=== PATIENT | female | born 1960 | race Caucasian/White ===

== ENCOUNTER 2022-06-08 01:09 | Emergency (ER) | payer OTHER ==
[~2022-06-08] VITALS: Ht 149.9 cm; Wt 59.9 kg
[2022-06-08 01:18] VITALS: BP 126/87
[2022-06-08] MEDS ORDERED: ACETAMINOPHEN EXTRA STRENGTH 500 MG TAB ONE (01:28)
[2022-06-08] MEDS ORDERED: ACETAMINOPHEN 325 MG TAB PO ONE (01:30)
--- NOTE | 2022-06-08 01:33 | NUR ---
pt to lobby
--- NOTE | 2022-06-08 01:56 | NUR ---
pt to bed 12
--- NOTE | 2022-06-08 02:37 | NUR ---
Dr. Palafox examining patient.
[2022-06-08] MEDS ORDERED: KETOROLAC 15 MG/ML VIAL IVP ONE (02:45)
[2022-06-08] MEDS ORDERED: NACL 0.9% 2,000 ML IV ONE (02:45)
--- NOTE | 2022-06-08 02:48 | NUR ---
X-Ray at bedside.
[2022-06-08 03:11] LABS: HEMATOCRIT 29.2 % (36-48); HEMOGLOBIN 9.8 g/dL (12.0-16.0); MEAN CORPUSCULAR HEMOGLOBIN 29 pg (27-31); MEAN CORPUSCULAR HGB CONC 33 g/dL (33-37); MEAN CORPUSCULAR VOLUME 86.3 fL (80-94); PLATELET COUNT (AUTO) 355 K/uL (140-450); RED BLOOD CELL COUNT(AUTO) 3.39 MIL/uL (4.20-5.40); RED CELL DISTRIBUTION WIDTH 14.4 % (11.6-13.7); WHITE BLOOD COUNT (AUTO) 19.1 K/uL (4.8-10.8)
[2022-06-08 03:44] LABS: ALBUMIN 2.6 g/dL (3.4-5.0); ANION GAP 11.1 (8-16); CARBON DIOXIDE 24.6 mmol/L (21-32); CREATININE 0.8 mg/dL (0.6-1.3); POTASSIUM 3.7 mmol/L (3.5-5.1); TOTAL BILIRUBIN 0.4 mg/dL (0.0-1.0)
[2022-06-08 04:09] LABS: LYMPHOCYTES % (MANUAL) 7 % (20-46); MONOCYTES % (MANUAL) 4 % (5-12)
--- NOTE | 2022-06-08 04:16 | NUR ---
Urine collected and sent to lab.
[2022-06-08 05:18] LABS: APPEARANCE,URINE CLEAR (CLEAR); BILIRUBIN,URINE NEGATIVE (NEGATIVE); BLOOD, URINE TRACE-I (NEGATIVE); COLOR,URINE YELLOW (YELLOW); LEUKOCYTE ESTERASE ,URINE TRACE (NEGATIVE); NITRITE, URINE NEGATIVE (NEGATIVE); UGLUCOSE NEGATIVE (NEGATIVE)
[2022-06-08 05:44] LABS: RBC,URINE 0-5 /HPF (0-5); WBC,URINE 0-5 /HPF (0-5)
[2022-06-08] MEDS ORDERED: NAPR-54 PO (05:53)
[2022-06-08] MEDS ORDERED: ACET-8905 PO (05:53)
--- NOTE | 2022-06-08 06:11 | NUR ---
Patient discharged with v/s stable. Written and verbal after care instructions given and explained. Patient alert, oriented and verbalized understanding of instructions. All questions addressed prior to discharge. ID band removed. Patient advised to follow up with PMD. Rx of Naproxen and Roebling sent to preferred pharmacy. Patient educated on indication of medication including possible reaction and side effects. Opportunity to ask questions provided and answered.
[2022-06-08 06:18] VITALS: BP 115/62
== END 2022-06-08 06:11 | disposition home or self-care (01) ==
LOC: MED 01:09
DX: M25.532 Pain in left wrist (principal); R50.9 Fever, unspecified; E87.1 Hypo-osmolality and hyponatremia; D72.829 Elevated white blood cell count, unspecified; I10 Essential (primary) hypertension; Z79.899 Other long term (current) drug therapy
CPT/HCPCS: 36415; 71045; 73110; 80053; 81001; 83605; 85025; 85651; 86140; 87040; 96361; 96374; 99285; J1885; Q0092; J7030

== ENCOUNTER 2022-09-28 09:21 | Inpatient (IN) | payer OTHER ==
[~2022-09-28] VITALS: Ht 149.9 cm; Wt 50.1 kg
[2022-09-28] VITALS (8 sets, daily range): BP systolic 83–102; BP diastolic 53–70; PULSE 87–150; RESP 10–32; TEMP 97.8–99; O2SAT 95–99
[~2022-09-28 09:21] MED LIST: ACET-8905 PO; NAPR-54 PO
[2022-09-28] MEDS ORDERED: FAMOTIDINE 20 MG/2 ML VIAL IVP ONE (09:35)
[2022-09-28] MEDS ORDERED: ONDANSETRON 4 MG/2 ML VIAL IVP ONE (09:35)
[2022-09-28] MEDS ORDERED: NACL 0.9% 1,000 ML IV ONE ×4 (09:35→21:50)
[2022-09-28 10:12] LABS: BASOPHILS # (AUTO) 0.1 K/uL (0.00-0.22); BASOPHILS % (AUTO) 0.4 % (0.0-2.0); EOSINOPHILS # (AUTO) 1.8 K/uL (0-0.4); EOSINOPHILS % (AUTO) 8.7 % (0.0-4.0); HEMATOCRIT 26.9 % (36-48); HEMOGLOBIN 8.6 g/dL (12.0-16.0); LYMPHOCYTES # (AUTO) 1.3 K/uL (2.5-16.5); LYMPHOCYTES % (AUTO) 6.3 % (20.5-51.1); MEAN CORPUSCULAR HEMOGLOBIN 26 pg (27-31); MEAN CORPUSCULAR HGB CONC 32 g/dL (33-37); MEAN CORPUSCULAR VOLUME 80.9 fL (80-94); NEUTROPHILS # (AUTO) 16.1 K/uL (1.8-7.7); NEUTROPHILS % (AUTO) 79.6 % (42.2-75.2); PLATELET COUNT (AUTO) 415 K/uL (140-450); RED BLOOD CELL COUNT(AUTO) 3.33 MIL/uL (4.20-5.40); WHITE BLOOD COUNT (AUTO) 20.2 K/uL (4.8-10.8)
[2022-09-28 10:28] LABS: FLU A ANTIGEN negative (NEGATIVE); FLU B ANTIGEN NEGATIVE (NEGATIVE)
[2022-09-28 10:30] LABS: ALANINE AMINOTRANSFERASE 14 U/L (12-78); ALKALINE PHOSPHATASE 125 U/L (50-136); ANION GAP 12.2 (8-16); ASPARTATE AMINOTRANSFERASE 58 U/L (15-37); CALCIUM 7.8 mg/dL (8.5-10.1); CARBON DIOXIDE 24.6 mmol/L (21-32); CHLORIDE 94 mmol/L (98-107); CREATININE 0.9 mg/dL (0.6-1.3); GFR ARICAN-AMERICAN 82 mL/min (>90); GFR NON ARICAN-AMERICAN 68 mL/min (>90); GLUCOSE 91 mg/dL (74-106); LIPASE 87 U/L (73-393); POTASSIUM 3.8 mmol/L (3.5-5.1); SODIUM SERUM 127 mmol/L (136-145); TOTAL BILIRUBIN 0.3 mg/dL (0.0-1.0); TOTAL PROTEIN, SERUM 8.1 g/dL (6.4-8.2); UREA NITROGEN, BLOOD 9 mg/dL (7-18)
[2022-09-28] MEDS ORDERED: PIPERACILLIN/TAZOBACTAM 3.375 GM in DEXTROSE 5% 50 ML IV ONE (10:55)
[2022-09-28] MEDS ORDERED: VANCOMYCIN 1,000 MG in DEXTROSE 5% 250 ML IV ONE (10:55)
[2022-09-28] MEDS ORDERED: PIPERACILLIN/TAZOBACTAM 3.375 GM VIAL IV ONE ×3 (11:18→23:47)
[2022-09-28] MEDS ORDERED: VANCOMYCIN 1,000 MG VIAL ONE ×2 (11:18→12:20)
[2022-09-28 11:27] LABS: INR 1.08 (0.8-1.2); PARTIAL THROMBOPLASTIN TIME 23.6 secs (22-35.6); PROTHROMBIN TIME 11.3 secs (10.8-13.4)
[2022-09-28 11:28] LABS: APPEARANCE,URINE CLEAR (CLEAR); BILIRUBIN,URINE NEGATIVE (NEGATIVE); BLOOD, URINE NEGATIVE (NEGATIVE); COLOR,URINE YELLOW (YELLOW); LEUKOCYTE ESTERASE ,URINE NEGATIVE (NEGATIVE); NITRITE, URINE NEGATIVE (NEGATIVE); PROTEIN,URINE NEGATIVE (NEGATIVE); UGLUCOSE NEGATIVE (NEGATIVE); UROBILINOGEN,URINE 0.2 EU/dL (0.2 - 1)
[2022-09-28] MEDS ORDERED: ACETAMINOPHEN EXTRA STRENGTH 500 MG TAB PO ONE (13:00)
[2022-09-28] MEDS ORDERED: IBUPROFEN 600 MG TAB PO ONE (13:00)
[2022-09-28] MEDS ORDERED: ACETAMINOPHEN EXTRA STRENGTH 500 MG TAB ONE ×2 (14:03→14:07)
[2022-09-28] MEDS ORDERED: IBUPROFEN 600 MG TAB ONE (14:04)
[2022-09-28] MEDS ORDERED: MORPHINE SULFATE 2 MG/ML SYR IVP PRN (15:45)
[2022-09-28] MEDS ORDERED: ONDANSETRON 4 MG/2 ML VIAL IVP PRN (15:45)
[2022-09-28] MEDS ORDERED: ACETAMINOPHEN 325 MG TAB PO PRN (15:45)
[2022-09-28] MEDS ORDERED: VANCOMYCIN PER PHARMACY MC PRN (15:45)
[2022-09-28] MEDS ORDERED: MAGNESIUM OXIDE 400 MG TAB PO PRN (15:45)
[2022-09-28] MEDS ORDERED: HYDROcodone/APAP 5/325 MG 1 TAB TAB PO PRN (15:45)
[2022-09-28] MEDS: NACL 0.9% 1,000 ML IV SCH (15:54)
[2022-09-28] MEDS ORDERED: NOREPINEPHRINE 4 MG in DEXTROSE 5% 250 ML IV PRN ×2 (16:25→23:05)
[2022-09-28] MEDS: PIPERACILLIN/TAZOBACTAM 3.375 GM in DEXTROSE 5% 50 ML IV SCH ×2 (18:27→23:59)
[2022-09-28] MEDS: MIDODRINE 5 MG TAB PO SCH ×2 (18:28→23:00)
[2022-09-28] MEDS ORDERED: NOREPINEPHRINE 4 MG/4 ML VIAL IV ONE (21:41)
[2022-09-28] MEDS ORDERED: ALBUMIN HUMAN 5 % 250 ML IV ONE (23:55)
[2022-09-29] VITALS (18 sets, daily range): BP systolic 88–141; BP diastolic 51–75; PULSE 101–126; RESP 14–48; TEMP 98.1–99.4; O2SAT 94–100
[2022-09-29] MEDS: NACL 0.9% 1,000 ML IV SCH ×3 (03:19→13:45)
[2022-09-29] MEDS ORDERED: PIPERACILLIN/TAZOBACTAM 3.375 GM VIAL IV ONE (05:11)
[2022-09-29] MEDS: MIDODRINE 5 MG TAB PO SCH ×3 (06:13→19:00)
[2022-09-29] MEDS: PIPERACILLIN/TAZOBACTAM 3.375 GM in DEXTROSE 5% 50 ML IV SCH ×4 (06:13→19:12)
[2022-09-29 06:32] LABS: ALBUMIN 1.6 g/dL (3.4-5.0); ANION GAP 16.4 (8-16); CALCIUM 6.4 mg/dL (8.5-10.1); CARBON DIOXIDE 17.6 mmol/L (21-32); CREATININE 0.9 mg/dL (0.6-1.3); MAGNESIUM 1.5 mg/dL (1.8-2.4); TOTAL BILIRUBIN 0.3 mg/dL (0.0-1.0)
[2022-09-29 06:41] LABS: HEMATOCRIT 23.1 % (36-48); HEMOGLOBIN 7.4 g/dL (12.0-16.0); MEAN CORPUSCULAR HEMOGLOBIN 26 pg (27-31); MEAN CORPUSCULAR HGB CONC 32 g/dL (33-37); MEAN CORPUSCULAR VOLUME 82.7 fL (80-94); PLATELET COUNT (AUTO) 290 K/uL (140-450); RED BLOOD CELL COUNT(AUTO) 2.79 MIL/uL (4.20-5.40); RED CELL DISTRIBUTION WIDTH 20.6 % (11.6-13.7)
[2022-09-29 06:43] LABS: WHITE BLOOD COUNT (AUTO) 38.5 K/uL (4.8-10.8)
[2022-09-29] MEDS: KCL 20 MEQ IN 100 mL PREMIX 200 ML IV PRN (07:02)
[2022-09-29 07:42] LABS: EOSINOPHILS % (MANUAL) 3 % (0-4); LYMPHOCYTES % (MANUAL) 2 % (20-46); MONOCYTES % (MANUAL) 3 % (5-12)
[2022-09-29] MEDS: VANCOMYCIN 750 MG in DEXTROSE 5% 250 ML IV SCH (09:51)
[2022-09-29 14:12] LABS: INR 1.46 (0.8-1.2); PARTIAL THROMBOPLASTIN TIME 39.5 secs (22-35.6)
[2022-09-29] MEDS ORDERED: SODIUM BICARBONATE 8.4% 150 MEQ in DEXTROSE 5% 1,000 ML IV SCH (22:20)
[2022-09-29] MEDS ORDERED: SODIUM BICARBONATE 8.4% PFS 50 MEQ/50 ML SYR IVP ONE (22:24)
[2022-09-29 22:31] LABS: BLOOD GAS BASE EXCESS -7.5 mmol/L (-2.0-2.0); BLOOD GAS HCO3 16.3 mmol/L (22-26); BLOOD GAS O2 SAT% 98.2 % (92.0-98.5); BLOOD GAS PCO2 26.4 mmHg (35-45); BLOOD GAS PH 7.406 (7.35-7.45); BLOOD GAS PO2 111.3 mmHg (75-100)
[2022-09-30] VITALS (13 sets, daily range): BP systolic 94–132; BP diastolic 52–82; PULSE 102–121; RESP 9–43; TEMP 97.7–99.2; O2SAT 97–100
[2022-09-30] MEDS: PIPERACILLIN/TAZOBACTAM 3.375 GM in DEXTROSE 5% 50 ML IV SCH ×4 (01:38→18:54)
[2022-09-30 05:16] LABS: BASOPHILS # (AUTO) 0.1 K/uL (0.00-0.22); BASOPHILS % (AUTO) 0.5 % (0.0-2.0); EOSINOPHILS # (AUTO) 3.1 K/uL (0-0.4); EOSINOPHILS % (AUTO) 13.4 % (0.0-4.0); HEMATOCRIT 21.2 % (36-48); LYMPHOCYTES # (AUTO) 1.2 K/uL (2.5-16.5); LYMPHOCYTES % (AUTO) 5.1 % (20.5-51.1); MEAN CORPUSCULAR HEMOGLOBIN 26 pg (27-31); MEAN CORPUSCULAR HGB CONC 32 g/dL (33-37); MEAN CORPUSCULAR VOLUME 80.9 fL (80-94); MONOCYTES # (AUTO) 1.3 K/uL (0.8-1.0); MONOCYTES % (AUTO) 5.5 % (1.7-9.3); NEUTROPHILS # (AUTO) 17.4 K/uL (1.8-7.7); NEUTROPHILS % (AUTO) 75.5 % (42.2-75.2); PLATELET COUNT (AUTO) 234 K/uL (140-450); RED BLOOD CELL COUNT(AUTO) 2.62 MIL/uL (4.20-5.40); RED CELL DISTRIBUTION WIDTH 20.9 % (11.6-13.7)
[2022-09-30 05:24] LABS: HEMOGLOBIN 6.7 g/dL (12.0-16.0)
[2022-09-30 05:37] LABS: ALBUMIN 1.3 g/dL (3.4-5.0); CALCIUM 6.7 mg/dL (8.5-10.1); CREATININE 0.8 mg/dL (0.6-1.3); MAGNESIUM 1.5 mg/dL (1.8-2.4); TOTAL BILIRUBIN 0.2 mg/dL (0.0-1.0); TOTAL PROTEIN, SERUM 5.5 g/dL (6.4-8.2)
[2022-09-30] MEDS: MAG SULF 2000 MG/WATER PREMIX 50 ML IV PRN (08:26)
[2022-09-30] MEDS: KCL 20 MEQ IN 100 mL PREMIX 200 ML IV PRN (09:29)
[2022-09-30] MEDS: NACL 0.9% 1,000 ML IV SCH ×3 (10:24→18:24)
[2022-09-30] MEDS: VANCOMYCIN 750 MG in DEXTROSE 5% 250 ML IV SCH (13:50)
[2022-09-30 15:45] LABS: BASOPHILS # (AUTO) 0.1 K/uL (0.00-0.22); BASOPHILS % (AUTO) 0.6 % (0.0-2.0); EOSINOPHILS # (AUTO) 2.9 K/uL (0-0.4); EOSINOPHILS % (AUTO) 13.4 % (0.0-4.0); HEMATOCRIT 27.3 % (36-48); HEMOGLOBIN 8.8 g/dL (12.0-16.0); LYMPHOCYTES # (AUTO) 1.3 K/uL (2.5-16.5); MEAN CORPUSCULAR HEMOGLOBIN 27 pg (27-31); MEAN CORPUSCULAR HGB CONC 32 g/dL (33-37); MEAN CORPUSCULAR VOLUME 82.1 fL (80-94); MONOCYTES # (AUTO) 0.9 K/uL (0.8-1.0); MONOCYTES % (AUTO) 4.1 % (1.7-9.3); NEUTROPHILS # (AUTO) 16.4 K/uL (1.8-7.7); NEUTROPHILS % (AUTO) 75.9 % (42.2-75.2); PLATELET COUNT (AUTO) 201 K/uL (140-450); RED BLOOD CELL COUNT(AUTO) 3.32 MIL/uL (4.20-5.40); RED CELL DISTRIBUTION WIDTH 20.2 % (11.6-13.7); WHITE BLOOD COUNT (AUTO) 21.6 K/uL (4.8-10.8)
[2022-09-30] MEDS ORDERED: DOXYCYCLINE 100 MG VIAL IV ONE (21:08)
[2022-09-30] MEDS: DOXYCYCLINE 100 MG in DEXTROSE 5% 100 ML IV SCH (21:16)
[2022-09-30] MEDS ORDERED: cefTRIAXone 1,000 MG VIAL ONE (23:30)
[2022-10-01] VITALS (11 sets, daily range): BP systolic 114–138; BP diastolic 64–81; PULSE 102–122; RESP 18–22; TEMP 97.5–98.8; O2SAT 96–98
[2022-10-01] MEDS: NACL 0.9% 1,000 ML IV SCH ×3 (02:13→18:24)
[2022-10-01 04:57] LABS: BASOPHILS # (AUTO) 0.1 K/uL (0.00-0.22); BASOPHILS % (AUTO) 0.4 % (0.0-2.0); EOSINOPHILS # (AUTO) 3.3 K/uL (0-0.4); EOSINOPHILS % (AUTO) 17.2 % (0.0-4.0); HEMATOCRIT 26.3 % (36-48); HEMOGLOBIN 8.6 g/dL (12.0-16.0); LYMPHOCYTES # (AUTO) 1.5 K/uL (2.5-16.5); LYMPHOCYTES % (AUTO) 7.9 % (20.5-51.1); MEAN CORPUSCULAR HEMOGLOBIN 27 pg (27-31); MEAN CORPUSCULAR HGB CONC 33 g/dL (33-37); MEAN CORPUSCULAR VOLUME 82.2 fL (80-94); MONOCYTES # (AUTO) 0.8 K/uL (0.8-1.0); MONOCYTES % (AUTO) 4.2 % (1.7-9.3); NEUTROPHILS # (AUTO) 13.5 K/uL (1.8-7.7); NEUTROPHILS % (AUTO) 70.3 % (42.2-75.2); PLATELET COUNT (AUTO) 171 K/uL (140-450); RED BLOOD CELL COUNT(AUTO) 3.19 MIL/uL (4.20-5.40); RED CELL DISTRIBUTION WIDTH 20.2 % (11.6-13.7); WHITE BLOOD COUNT (AUTO) 19.3 K/uL (4.8-10.8)
[2022-10-01 05:21] LABS: ALBUMIN 1.3 g/dL (3.4-5.0); ANION GAP 9.9 (8-16); CALCIUM 7.2 mg/dL (8.5-10.1); CARBON DIOXIDE 25.3 mmol/L (21-32); CREATININE 0.6 mg/dL (0.6-1.3); MAGNESIUM 1.9 mg/dL (1.8-2.4); POTASSIUM 3.2 mmol/L (3.5-5.1); TOTAL BILIRUBIN 0.2 mg/dL (0.0-1.0); TOTAL PROTEIN, SERUM 5.7 g/dL (6.4-8.2)
[2022-10-01] MEDS: DOXYCYCLINE 100 MG in DEXTROSE 5% 100 ML IV SCH ×2 (08:57→20:07)
[2022-10-01] MEDS: POTASSIUM CHLORIDE 10 MEQ TABER PO PRN (09:03)
[2022-10-02] VITALS (7 sets, daily range): BP systolic 127–138; BP diastolic 77–87; PULSE 99–124; RESP 18–22; TEMP 98.4–98.8; O2SAT 93–100
[2022-10-02] MEDS: NACL 0.9% 1,000 ML IV SCH ×4 (02:05→10:24)
[2022-10-02 05:11] LABS: BASOPHILS # (AUTO) 0.1 K/uL (0.00-0.22); BASOPHILS % (AUTO) 0.7 % (0.0-2.0); EOSINOPHILS # (AUTO) 2.6 K/uL (0-0.4); EOSINOPHILS % (AUTO) 17.5 % (0.0-4.0); HEMATOCRIT 25.7 % (36-48); HEMOGLOBIN 8.4 g/dL (12.0-16.0); LYMPHOCYTES # (AUTO) 1.8 K/uL (2.5-16.5); MEAN CORPUSCULAR HEMOGLOBIN 27 pg (27-31); MEAN CORPUSCULAR HGB CONC 33 g/dL (33-37); MEAN CORPUSCULAR VOLUME 82.6 fL (80-94); MONOCYTES % (AUTO) 6.7 % (1.7-9.3); NEUTROPHILS # (AUTO) 9.5 K/uL (1.8-7.7); NEUTROPHILS % (AUTO) 63.1 % (42.2-75.2); PLATELET COUNT (AUTO) 128 K/uL (140-450); RED BLOOD CELL COUNT(AUTO) 3.11 MIL/uL (4.20-5.40); WHITE BLOOD COUNT (AUTO) 15.1 K/uL (4.8-10.8)
[2022-10-02 05:26] LABS: ALBUMIN 1.3 g/dL (3.4-5.0); ANION GAP 9.7 (8-16); CALCIUM 7.9 mg/dL (8.5-10.1); CARBON DIOXIDE 25.7 mmol/L (21-32); CREATININE 0.5 mg/dL (0.6-1.3); MAGNESIUM 1.5 mg/dL (1.8-2.4); POTASSIUM 3.4 mmol/L (3.5-5.1); TOTAL BILIRUBIN 0.2 mg/dL (0.0-1.0); TOTAL PROTEIN, SERUM 5.9 g/dL (6.4-8.2)
[2022-10-02] MEDS: DOXYCYCLINE 100 MG in DEXTROSE 5% 100 ML IV SCH (09:28)
[2022-10-02] MEDS: POTASSIUM CHLORIDE 10 MEQ TABER PO PRN (11:40)
[2022-10-02] MEDS: MAG SULF 2000 MG/WATER PREMIX 50 ML IV PRN (11:40)
== END 2022-10-02 12:55 | disposition left against medical advice (07) | DRG 720 ==
LOC: MED 09:21 → MMU 15:42 → MIC 18:06 → MTU 09-30 18:56
PROVIDERS: ADMIT Internal Medicine; ATTEND Internal Medicine
PROC: 02HV33Z Insertion of Infusion Device into Superior Vena Cava, Percutaneous Approach (ICD-10-PCS; 2022-09-29)
PROC: 30233N1 Transfusion of Nonautologous Red Blood Cells into Peripheral Vein, Percutaneous Approach (ICD-10-PCS; principal; 2022-09-30)
DX: A41.9 Sepsis, unspecified organism (principal); R65.21 Severe sepsis with septic shock; E43 Unspecified severe protein-calorie malnutrition; I95.9 Hypotension, unspecified; K76.0 Fatty (change of) liver, not elsewhere classified; E11.9 Type 2 diabetes mellitus without complications; Z20.822 Contact with and (suspected) exposure to COVID-19; Z53.21 Procedure and treatment not carried out due to patient leaving prior to being seen by health care provider; I10 Essential (primary) hypertension; Z79.899 Other long term (current) drug therapy; Z68.22 Body mass index [BMI] 22.0-22.9, adult
CPT/HCPCS: 36415; 36430; 36600; 71045; 71275; 80053; 81003; 82728; 82803; 83605; 83690; 83735; 83880; 84484; 85025; 85379; 85610; 85730; 86038; 86886; 86900; 86901; 86920; 87040; 87081; 93005; 96365; 96367; 96375; 99291; J0696; J1644; J2405; J2543; J3370; J3475; J3480; J3490; J7060; P9016; P9041; Q0092; Q9967